=== PATIENT | female | born 1970 ===

== ENCOUNTER 2018-11-26 08:35 | Emergency (ER) | payer OTHER ==
[~2018-11-26] VITALS: Ht 167.6 cm; Wt 104.3 kg
[~2018-11-26 08:35] MED LIST: ATOR40TA PO; Aspirin EC81 MG PO; CLON.1 PO; LEVSOD100 PO; LORA2 PO; PRAZ1 PO; TRAZ100 PO; Toprol Xl50 MG PO
[2018-11-26] MEDS ORDERED: NAPR550 PO (10:02)
[2018-11-26] MEDS ORDERED: Clindamycin HC300 MG PO (10:02)
== END 2018-11-26 11:00 | disposition home or self-care (01) ==
LOC: ER 08:35
DX: K04.7 Periapical abscess without sinus (principal); I10 Essential (primary) hypertension; F17.200 Nicotine dependence, unspecified, uncomplicated; Z86.73 Personal history of transient ischemic attack (TIA), and cerebral infarction without residual deficits
CPT/HCPCS: 64400; 96372-59; 99282-25; J1885

== ENCOUNTER 2018-12-02 11:09 | Day surgery (SDC) | payer OTHER ==
[~2018-12-02] VITALS: Ht 165.1 cm; Wt 104.0 kg
[~2018-12-02 11:09] MED LIST changes: +Clindamycin HC300 MG PO; +NAPR550 PO
[2018-12-02] MEDS ORDERED: VARE1 PO (11:47)
[2018-12-02] MEDS ORDERED: CARV6.25 PO (11:47)
[2018-12-02] MEDS ORDERED: HYDRA25 PO (11:48)
[2018-12-02] MEDS ORDERED: LISI20 PO (11:48)
[2018-12-02] MEDS ORDERED: HYDCHL25 PO (11:49)
== END 2018-12-02 23:04 | disposition home or self-care (01) ==
LOC: MHTC 11:09
DX: I38 Endocarditis, valve unspecified (principal); I34.0 Nonrheumatic mitral (valve) insufficiency; I35.1 Nonrheumatic aortic (valve) insufficiency; I51.7 Cardiomegaly; I10 Essential (primary) hypertension; E78.5 Hyperlipidemia, unspecified; F32.9 Major depressive disorder, single episode, unspecified; F41.9 Anxiety disorder, unspecified; F17.210 Nicotine dependence, cigarettes, uncomplicated; Z86.73 Personal history of transient ischemic attack (TIA), and cerebral infarction without residual deficits; Z79.899 Other long term (current) drug therapy; Z79.82 Long term (current) use of aspirin; Z88.5 Allergy status to narcotic agent
CPT/HCPCS: 93312; 93325; J2250; J3010; J7040

== ENCOUNTER 2019-10-27 10:36 | Inpatient (IN) | payer MEDICARE, OTHER ==
[~2019-10-27] VITALS: Ht 170.2 cm; Wt 110.7 kg
[~2019-10-27 10:36] MED LIST changes: +CARV25 PO; -CLON.1 PO; +EUTHYROX125 MCG PO; +HYDCHL25 PO; +HYDRA25 PO; -LEVSOD100 PO; +LISI20 PO; +Prozac20 MG PO; -TRAZ100 PO; +VARE1 PO
[2019-10-27 12:22] LABS: Influenza A Negative (NEGATIVE); Influenza B Negative (NEGATIVE)
[2019-10-27 12:35] LABS: BASOPHILS ABSOLUTE AUTO 0.05 K/mm3 (0.00-0.23); BASOPHILS PERCENT AUTO 0 % (0-2); EOSINOPHILS ABSOLUTE AUTO 0.01 K/mm3 (0.00-0.68); EOSINOPHILS PERCENT AUTO 0 % (0-6); Hematocrit 47.3 % (33.0-51.0); Hemoglobin 16.9 g/dL (11.5-16.0); IMMATURE GRAN ABSOLUTE AUTO 0.14 K/mm3 (0.00-0.10); IMMATURE GRAN PERCENT AUTO 1 % (0-1); LYMPHOCYTES ABSOLUTE AUTO 1.13 K/mm3 (0.84-5.20); LYMPHOCYTES PERCENT AUTO 6 % (21-46); MONOCYTES ABSOLUTE AUTO 1.94 K/mm3 (0.16-1.47); MONOCYTES PERCENT AUTO 10 % (4-13); Mean Corpuscular HGB 32.5 pg (26.0-34.0); Mean Corpuscular HGB Conc 35.7 g/dL (31.5-36.5); Mean Corpuscular Volume 91 fL (80-100); Mean Platelet Volume 10.2 fL (9.1-12.4); NEUTROPHILS ABSOLUTE AUTO 15.91 K/mm3 (1.96-9.15); NEUTROPHILS PERCENT AUTO 83 % (41-73); Platelet Count 191 K/mm3 (150-400); RDW Coefficient Variation 11.9 % (11.7-14.2); RDW Standard Deviation 39.8 fL (35.1-46.3); White Blood Cell Count 19.18 K/mm3 (4.00-11.30)
[2019-10-27 12:57] LABS: Alanine Aminotransfer (ALT/SGP 18 U/L (12-78); Albumin, Blood 3.2 g/dL (3.4-5.0); Albumin/Globulin Ratio 0.7 (0.8-1.8); Alk Phos 97 U/L (50-136); Anion Gap 7 mmol/L (6-16); Aspartate Aminotrans (AST/SGOT 21 U/L (12-37); Bilirubin, Total 0.8 mg/dL (0.1-1.0); Blood Urea Nitrogen 23 mg/dL (8-24); Bun/Creatinine Ratio 12.1 (12.0-20.0); CO2, Blood 26 mmol/L (21-32); Calcium, Blood 9.3 mg/dL (8.5-10.1); Chloride, Blood 103 mmol/L (98-108); Globulin, Blood 4.6 g/dL (2.2-4.0); Glomerular Filtration Rate 30 (60-); Glucose, Blood 117 mg/dL (70-99); Potassium, Blood 4.2 mmol/L (3.5-5.5); Sodium, Blood 136 mmol/L (136-145); Total Protein, Blood 7.8 g/dL (6.4-8.2); Troponin I <0.015 ng/mL (0.000-0.040)
[2019-10-27 16:48] LABS: Source, Urine Clean Catch
[2019-10-27 16:51] LABS: Appearance, Urine Hazy (Clear); Bilirubin, Urine Neg (Neg); Blood, Urine 5+ (Neg); Color, Urine Yellow (P-Yellow); Glucose Qualitative, Urine Neg (Neg); Ketones, Urine Neg (Neg); Leukocyte Esterase, Urine 3+ (Neg); Nitrite, Urine Pos (Neg); Protein, Urine 4+ (Neg); Specific Gravity, Urine 1.015 (1.003-1.022); Urobilinogen, Urine NORM (Normal)
[2019-10-27 16:57] LABS: White Blood Cells, Urine TNTC /hpf (0-5)
[2019-10-27 16:58] LABS: Bacteria Many /hpf; Squamous Epithelial Cells Few /hpf (Few)
[2019-10-27] MEDS ORDERED: TRAZ100 PO (18:15)
[2019-10-27] MEDS ORDERED: BUPROPION XL150 M1 PO ×2 (18:18→20:40)
[2019-10-27] MEDS ORDERED: AMLODIPINE BESYL5 MG PO (18:18)
[2019-10-27] MEDS ORDERED: Catapres0.2 MG PO (18:44)
[2019-10-27] MEDS ORDERED: VITAMIN D34000 UNIT PO (19:23)
[2019-10-27] MEDS ORDERED: Fish Oil 10001000 MG PO (19:23)
[2019-10-27] MEDS ORDERED: HAIR, SKIN AND1 EAC3 PO (19:24)
[2019-10-27] MEDS ORDERED: BUPROPION XL PO (20:38)
--- NOTE | 2019-10-27 21:50 | NUR ---
SPOKE TO DR SPENCER REGARDING PT ELEVATED TEMP 100.7, ELEAVTED HR 130s, AND ELEVATED BP 192/106 MOST RECENT CHECK. (PT WAS 200s/100s ON ARRIVAL TO FLOOR. RECEIVED ORDERS FOR TELEMETRY, TYLENOL FOR FEVER. MEDS GIVEN PER EMAR.
--- NOTE | 2019-10-27 22:43 | NUR ---
RECHECK PATIENT VITALS - PT TEMP IS DOWN AND SBP IS 130s NOW. WILL CONTINUE TO MONITOR
[2019-10-28 05:48] LABS: Hematocrit 40.1 % (33.0-51.0); Hemoglobin 13.8 g/dL (11.5-16.0); Mean Corpuscular HGB 32.2 pg (26.0-34.0); Mean Corpuscular HGB Conc 34.4 g/dL (31.5-36.5); Platelet Count 137 K/mm3 (150-400); RDW Standard Deviation 41.5 fL (35.1-46.3); Red Blood Cell Count 4.29 M/mm3 (3.80-5.20); White Blood Cell Count 14.71 K/mm3 (4.00-11.30)
[2019-10-28 05:50] LABS: Mean Corpuscular Volume 94 fL (80-100)
--- NOTE | 2019-10-28 06:13 | NUR ---
END OF SHIFT NOTE: PATIENT ARRIVED TO THE FLOOR RATHER UNSTABLE AND A BIT JESÚS LOOKING, WITH ELEVATED TEMP, BPs AND HR. SHE WAS EASILY WINDED AND DYSPNEIC WITH EXERTION, APPEARS CONSTRICTED AND CANT GIVE ME A GOOD BREATH IN AND OUT. LUNG SOUNDS ARE DIMINISHED, AND SHALLOW. SHE IS ASKING FOR THE POTTY FREQUENTLY BUT DOESNT HAVE MUCH OUT PUT. THE DR WAS CALLED AND IVF WERE GIVEN ALONG WITH TYLENOL FOR FEVER AND A PRN IV HYRALIZINE WAS ORDERED FOR FURTHER SBP >160; I NEVER HAD TO GIVE THIS THE PATIENT STABLIZED. SHE IS NOW 130S AOVER 70S PER PCU TECH SHE IS SR WITH OCCASSIONAL PVCs WITH A HR IN THE 80s. SHE RECEIVED ULTRAM FOR RIB PAIN. CURRENTLY SHE IS SLEEPING PEACEFULLY IN NO APPARENT DISTRESS. BED IS LOW AND LOCKED. SHE CALL APPROPRIATELY.
--- NOTE | 2019-10-28 18:22 | NUR ---
PATIENT A/O X4, UP INDEPENDENTLY IN ROOM. 20G IV TO FA WNL AND SL BETWEEN ABX. TOLERATING CARDIAC DIET. CONTINENT OF URINE/STOOL. PATIENT WHEEZING THIS EVENING AND ALBUTEROL ORDERED TO TREAT, ON RA. B/P REMAINS ELEVATED, HYDRALAZINE ORDERED PRN TO CONTROL. PATIENT TEARFUL AT TIMES THIS SHIFT, BUT CALMS EASILY. PLEASANT AND COOPERATIVE WITH CARE. ROCEPHIN TO TREAT SEPSIS/UTI. POSITIVE BLOOD CX. SR ON TELE. CALLS APPROPRIATELY FOR ASSISTANCE.
--- NOTE | 2019-10-28 20:25 | NUR ---
PT SITTING IN BED HAVING JUST FINISHED A NEBS TREATMENT. SHE SAYS IT HELPED ALOT. HER BP IS IMPROVED FROM THIS MORNING, BUT SHE HAS A TEMP - 100.7. GAVE TYLENOL PER EMAR ALONG WITH HER BEDTIME MEDS. SHIFT ASSESSMENT COMPLETED. FLUSHED AND SL HER IV - A 20G RFA. LUNG SOUNDS CLEAR TONIGHT. SHE DENIES PAIN. INDEPENDENT IN THE ROOM, ABLE TO MAKE HER NEEDS KNOWN. PLEASANT AND COOPERATIVE. CALL DONALDSON WITHIN REACH.
[2019-10-29 06:21] LABS: BASOPHILS ABSOLUTE AUTO 0.04 K/mm3 (0.00-0.23); BASOPHILS PERCENT AUTO 1 % (0-2); EOSINOPHILS ABSOLUTE AUTO 0.13 K/mm3 (0.00-0.68); EOSINOPHILS PERCENT AUTO 2 % (0-6); Hematocrit 38.3 % (33.0-51.0); Hemoglobin 13.2 g/dL (11.5-16.0); IMMATURE GRAN ABSOLUTE AUTO 0.06 K/mm3 (0.00-0.10); IMMATURE GRAN PERCENT AUTO 1 % (0-1); LYMPHOCYTES ABSOLUTE AUTO 0.94 K/mm3 (0.84-5.20); LYMPHOCYTES PERCENT AUTO 11 % (21-46); MONOCYTES ABSOLUTE AUTO 0.91 K/mm3 (0.16-1.47); MONOCYTES PERCENT AUTO 11 % (4-13); Mean Corpuscular HGB 32.3 pg (26.0-34.0); Mean Corpuscular HGB Conc 34.5 g/dL (31.5-36.5); Mean Corpuscular Volume 94 fL (80-100); Mean Platelet Volume 10.7 fL (9.1-12.4); NEUTROPHILS ABSOLUTE AUTO 6.27 K/mm3 (1.96-9.15); NEUTROPHILS PERCENT AUTO 75 % (41-73); Platelet Count 138 K/mm3 (150-400); RDW Standard Deviation 41.4 fL (35.1-46.3); Red Blood Cell Count 4.09 M/mm3 (3.80-5.20); White Blood Cell Count 8.35 K/mm3 (4.00-11.30)
[2019-10-29 06:58] LABS: Albumin, Blood 2.5 g/dL (3.4-5.0); Anion Gap 6 mmol/L (6-16); Blood Urea Nitrogen 22 mg/dL (8-24); Bun/Creatinine Ratio 13.8 (12.0-20.0); CO2, Blood 25 mmol/L (21-32); Calcium, Blood 8.7 mg/dL (8.5-10.1); Chloride, Blood 106 mmol/L (98-108); Glomerular Filtration Rate 36 (60-); Glucose, Blood 114 mg/dL (70-99); Phosphorus, Blood 2.2 mg/dL (2.5-4.9); Potassium, Blood 3.6 mmol/L (3.5-5.5); Sodium, Blood 137 mmol/L (136-145)
--- NOTE | 2019-10-29 08:17 | NUR ---
END OF SHIFT: PATIENT HAD A MUCH BETTER NIGHT TONIGHT. NO ACUTE CHANGES TO REPORT
--- NOTE | 2019-10-29 17:38 | NUR ---
PATIENT IS ALERT AND ORIENTED AND COOPERATIVE WITH CARE. NO COMPLAINTS OF PAIN. SHE IS INDEPENDENT TO THE BSC. FAMILY HAS BEEN AT THE BEDSIDE THROUGHOUT THE DAY. TELEMETRY SHOWS SR AT 62 BPM. THE TELE MONITOR REPORTED THE PATIENT HR DROPPED TO THE 50'S THIS AFTERNOON WHILE THE PATIENT WAS ASLEEP. THE PATIENT BP HAS BEEN ELEVATED ON AND OFF TODAY. PATIENT MAKES HER NEEDS KNOWN. WILL CONTINUE TO MONITOR
[2019-10-30 05:37] LABS: Albumin, Blood 2.4 g/dL (3.4-5.0); Anion Gap 5 mmol/L (6-16); Blood Urea Nitrogen 25 mg/dL (8-24); Bun/Creatinine Ratio 15.2 (12.0-20.0); CO2, Blood 28 mmol/L (21-32); Calcium, Blood 9.2 mg/dL (8.5-10.1); Chloride, Blood 106 mmol/L (98-108); Creatinine, Blood 1.64 mg/dL (0.40-1.00); Glomerular Filtration Rate 35 (60-); Glucose, Blood 95 mg/dL (70-99); Phosphorus, Blood 3.3 mg/dL (2.5-4.9); Potassium, Blood 4.1 mmol/L (3.5-5.5); Sodium, Blood 139 mmol/L (136-145)
--- NOTE | 2019-10-30 08:34 | NUR ---
end of shift note: Patient slept well this NOC shift. she contiues to have rebound BPs, and her anxiety may contribute to her high pressures as well. she reporrts she is feeling better; she denies pain, SOB, N/V/D. passed to Day JOHN Bennett
[2019-10-30] MEDS ORDERED: ACET325 PO (13:44)
[2019-10-30] MEDS ORDERED: Florastor250 MG PO (13:45)
[2019-10-30] MEDS ORDERED: CIPR500 PO (13:46)
--- NOTE | 2019-10-30 14:14 | NUR ---
DISCHARGE DISCHARGE INSTRUCTIONS, FOLLOW UP APPOINTMENT AND MEDICATION LIST REVIEWED WITH PT. QUESTIONS/CONCERNS ANSWERED. PT VERBALLY INDICATED UNDERSTANDING OF ALL INSTRUCTIONS RECEIVED. PT ESCORTED OUT VIA W/C BY KARIE
== END 2019-10-30 14:20 | disposition home or self-care (01) | DRG 872 ==
LOC: ER 10:36 → MEDS 18:07 → ENPENDDIS 10-30 11:48 → MEDS 10-30 14:20
PROVIDERS: Internal Medicine; Physician Assistant; ADMIT Hospitalist
DX: A41.51 Sepsis due to Escherichia coli [E. coli] (principal); N10 Acute pyelonephritis; N17.9 Acute kidney failure, unspecified; N18.3 Chronic kidney disease, stage 3 (moderate); I12.9 Hypertensive chronic kidney disease with stage 1 through stage 4 chronic kidney disease, or unspecified chronic kidney disease; E03.9 Hypothyroidism, unspecified; F43.10 Post-traumatic stress disorder, unspecified; R65.20 Severe sepsis without septic shock; E78.5 Hyperlipidemia, unspecified; F17.200 Nicotine dependence, unspecified, uncomplicated; E66.9 Obesity, unspecified; Z86.73 Personal history of transient ischemic attack (TIA), and cerebral infarction without residual deficits; Z79.82 Long term (current) use of aspirin; Z79.899 Other long term (current) drug therapy
CPT/HCPCS: 36415; 71046; 74177; 80053; 80069; 81001; 83605; 84484; 85025; 85027; 87040; 87077; 87086; 87186; 87804; 93005; 93010; 94640; 94760; 96361; 96365-59; 99285-25; A9270; A9270-GY; J0360; J0696; J1644; J7030; P9612; Q9967